=== PATIENT | female | born 1995 | race Caucasian/White ===

== ENCOUNTER 2024-03-17 07:36 | Day surgery (SDC) | payer OTHER ==
[2024-03-17] MEDS ORDERED: Ringers Lactate 1,000 ML IV ONE (07:52)
[2024-03-17] MEDS: MIDAZOLAM HCL 2 MG/2 ML INJ ONE (08:12)
[2024-03-17] MEDS ORDERED: FENTANYL CITR 100 MCG/2 ML ONE ×2 (08:57→10:55)
[2024-03-17] MEDS ORDERED: LIDOCAINE 1% MPF 5 ML VIAL ONE (08:57)
[2024-03-17] MEDS ORDERED: ONDANSETRON 4 MG/2 ML VIAL ONE (08:57)
[2024-03-17] MEDS ORDERED: MIDAZOLAM HCL 2 MG/2 ML INJ ONE (08:57)
[2024-03-17] MEDS ORDERED: propofoL 200 MG/20 ML VIAL IV ONE (08:57)
[2024-03-17] MEDS ORDERED: KETOROLAC 30 MG/ML INJ ONE (08:57)
[2024-03-17] MEDS ORDERED: ROCURONIUM 50 MG/5 ML VIAL IV ONE (08:57)
[2024-03-17 09:11] VITALS: O2SAT 100
[2024-03-17] MEDS: POVIDONE-IODINE 5% EYE DROPS ONE (09:50)
[2024-03-17] MEDS: CEFAZOLIN SODIUM 1 GM/VIAL ONE (09:50)
[2024-03-17] MEDS: LIDOCAINE HCL/EPINEPHRINE 20 ML MDV ONE (10:01)
[2024-03-17] MEDS ORDERED: BACITRACIN OINTMENT 14 GM TUBE TOP ONE (10:07)
[2024-03-17] MEDS: Ringers Lactate 1,000 ML IV ONE (11:56)
[2024-03-17] MEDS ORDERED: Mastisol Adhesive Liq ONE (12:32)
[2024-03-17] MEDS: MEPERIDINE HCL 25 MG/ML SYR ONE (13:04)
[2024-03-17] MEDS: ONDANSETRON 4 MG/2 ML VIAL ONE (13:12)
[2024-03-17] MEDS: PROMETHAZINE INJ 25 MG/ML AMP ONE (13:18)
--- NOTE | 2024-03-17 13:32 | P.OP ---
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 A shoulder roll was placed and the head was turned towards the left for exposure of the right face and neck. The skin was cleaned and the planned incision site was injected with 5 mL of 1% lidocaine with epinephrine. Facial nerve monitors were placed in the right forehead and right lower lip for intraoperative monitoring with grounding and stimulating electrodes placed to the left shoulder. The right eye was protected with a Tegaderm and the patient's face and neck was prepped with Betadine and draped in the standard fashion. A standard right parotidectomy incision was made in the right preauricular crease, around the ear and onto the right neck. The anterior skin flap was elevated using Bovie electrocautery, taking care to avoid over thinning of the flap as well as avoiding direct entry into the tumor. The tumor over all appeared to be well-circumscribed with no obvious clinical extension into the skin or subcutaneous soft tissues. The posterior aspect of the parotid gland was identified and carefully dissected. Inferior aspect of the tumor was identified and the fatty tissue was carefully elevated around the inferior most aspect. A small lymph node was noted within the fatty tissues and was judiciously dissected and sent along with the main specimen. During this dissection, a small branch of the facial nerve was identified and confirmed via stimulation. This branch was traced in a retrograde fashion back towards the main trunk. The tumor was carefully elevated and soft tissue attachments directly above and inferior to this branch were divided using a combination of Bovie electrocautery, LigaSure and scissors. Once the branch was followed back towards the main inferior trunk, the next most superior branch was then identified and traced in a proximal to distal direction, elevating tissues between the two nerve branches. This process was continued until the full extension of the facial nerve was exposed and the tumor was completely extirpated. The nerve stimulator was used to test facial nerve function and the upper and lower divisions appeared to stimulate well. The true PES of the nerve remained covered in the soft tissue and was not additionally dissected. The surgical bed was thoroughly irrigated and inspected and there was no significant bleeding. A VELIA drain was inserted and positioned along the most anterior aspect of the surgical field in order to avoid applying pressure to the proximal nerve branches. The incision was then closed in a layered fashion using 4-0 Vicryl sutures and 5-0 Monocryl subcuticular sutures. Mastisol and Steri-Strips were applied after cleaning and drying the skin. During extubation and awakening, a moderate amount of blood and clot was noted to extrude into the VELIA drain. Direct pressure was applied to the wound for several minutes and the drain was observed with no additional significant bleeding. A Ceja dressing was applied using fluffed gauze and Kerlix. The patient was observed for several more minutes with no additional drainage into the VELIA drain. The patient was then transported to the recovery room in stable condition and will be observed for any significant degree of bruising or bleeding. Complications: None Drain(s): VELIA drain Fluids & blood products: See anesthesia record Transferred to: Recovery Room Condition: Good
[2024-03-17] MEDS: TRAMADOL HCL 50 MG TAB ONE (14:20)
[2024-03-17 15:16] VITALS: BP 127/89; TEMP 97
== END 2024-03-17 14:43 | disposition home or self-care (01) ==
LOC: OR 07:36
PROVIDERS: ATTEND Otolaryngology
PROC: 00BM0ZZ Excision of Facial Nerve, Open Approach (ICD-10-PCS; 2024-03-17)
PROC: 0CB80ZZ Excision of Right Parotid Gland, Open Approach (ICD-10-PCS; principal; 2024-03-17 09:00)
DX: D11.0 Benign neoplasm of parotid gland (principal); F32.A Depression, unspecified
CPT/HCPCS: 88305; 42415; J2550; J2704; J2001; J2250 ×2; J3010 ×2; J2175; J2405 ×2; J7120 ×2; J0690; 88307